=== PATIENT | male | born 1955 | race Caucasian/White ===

== ENCOUNTER 2022-05-28 07:37 | Outpatient (CLI) | payer MEDICARE, BC, SELFPAY | END 2022-05-28 07:38 | disposition home or self-care (01) | LOC: NFLDREF 21:44 | PROVIDERS: PCP Internal Medicine; Referring Provider Internal Medicine; Visit Provider Internal Medicine | DX: Z00.00 Encounter for general adult medical examination without abnormal findings (principal); G25.81 Restless legs syndrome; Z12.5 Encounter for screening for malignant neoplasm of prostate; Z13.6 Encounter for screening for cardiovascular disorders | CPT/HCPCS: 80053; 80061; 84153 ==

== ENCOUNTER 2023-06-04 07:42 | Outpatient (CLI) | payer MEDICARE, BC, SELFPAY ==
--- OUTSIDE RECORDS SUMMARY | 2023-06-28 07:15 | XMS_ITS | Clinical Summary ---
Author Name Unknown Organization [facility] Address [address] [place] [address] Care Team Providers Care Stewardess Supervisor Name Role Phone Elsewhere, Pcp Primary Care Provider Unavailabl e Source Comments Patient records contain information from all sites at [facility]. For routine questions regarding patient records, call [phone] during business hours, M-F 8:00 AM - 5:00 PM Central Time. Record requests for emergency care only can be directed to [phone] at any time.[facility] Allergies No known active allergies Medications Medication Sig Dispensed Refills Start Date End Date Status amoxicillin (AMOXIL) 500 mg capsule Take 4 capsules by mouth. 1 hour prior to dental appointments and procedures 05/28/2021 Active oxyCODONE (ROXICODONE) 5 mg immediate release tabletIndications: Acute Pain Take 1 tablet (5 mg total) by mouth every 4 (four) hours as needed for pain Indication: Acute Pain. 12 tablet 01/08/2022 Active HYDROcodone-acetam inophen (NORCO) 5-325 mg per tablet Take 1 tablet by mouth every 8 (eight) hours as needed. 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 Genetic Susceptibility To Disease from Last 3 Months Immunizations Name Administration Dates Next Due Influenza Split 11/08/2013 SARS-COV-2 (COVID-19) - MODERNA(Discontinued) influenza vaccine quad (FLUZ ONE/FLUARIX) (6 months and older)(PF) 12/01/2014 Family History Medical History Relation Name Comments Pancreatic cancer Father Vazquez Hernandez Arthritis Mother Ramu Hernandez Pancreatic cancer Mother Ramu Hernandez Relation Name Status Comments Father Vazquez Hernandez Mother Ramu Hernandez Social History Tobacco Use Types Packs/Day Years Used Date Smoking Tobacco: Never Smokeless Tobacco: Never Tobacco Cessation:Counseling Given: Not Answered Alcohol Use Standard Drinks/Week Comments Yes 3 (1 standard drink = 0.6 oz pur e alcohol) Humiliation, Afraid, Rape, and Kick questionnair e Answer Date Recorded Within the last year, have y ou been afraid of your partner or ex-partner? No 01/25/2021 Within the last year, have y ou been humiliated or emotionally abused in other ways by your partner or ex-partner? No Within the last year, have y ou been kicked, hit, slapped, or otherwise physically hurt by your partner or ex-partner? No 01/25/2021 Within the last year, have y ou been raped or forced to have any kind of sexual activity by your partner or ex-partner? No 01/25/2021 Social Connection and Isolat ion Panel [NHANES] Answer Date Recorded In a typical week, how many times do you talk on the phone with family, friends, or neighbors? More than three times a week 01/25/2021 How often do you get togethe r with friends or relatives? Three times a week 01/25/2021 How often do you attend chur or episcopal services? More than 4 times per year 01/25/2021 Do you belong to any clubs o r organizations such as sikhism groups, unions, fraternal or athletic groups, or school groups? Yes 01/25/2021 How often do you attend meet ings of the clubs or organizations you belong to? More than 4 times per year 01/25/2021 Are you , , di vorced, , never , or living with a partner? 01/25/2021 AUDIT-C Answer Date Recorded Q1: How often do you have a drink containing alc ohol? 2-3 times a week 01/25/2021 Q2: How many drinks containi ng alcohol do you have on a typical day when you are drinking? 1 or 2 01/25/2021 Q3: How often do you have si x or more drinks on one occasion? Never 01/25/2021 Overall Financial Resource Strain (CARDIA) Answe r Date Recorded How hard is it for you to pa y for the very basics like food, housing, medical care, and heating? Not very hard 01/25/2021 [facility] - Occupational Stress Questionnaire Answer Date Recorded Do you feel stress - tense, restless, nervous, or anxious, or unable to sleep at night because your mind is troubled all the time - these days? Not at all 01/25/2021 Exercise Vital Sign Answer Date Recorde d On average, how many days pe r week do you engage in moderate to strenuous exercise (like a brisk walk)? 3 days 01/25/2021 On average, how many minutes do you engage in exercise at this level? 50 min 01/25/2021 Hunger Vital Sign Answer Date Recorded Within the past 12 months, y ou worried that your food would run out before you got the money to buy more. Never true 01/26/20 21 Within the past 12 months, t he food you bought just didn't last and you didn't have money to get more. Never true 01/25/2021 PRAPARE - Transportation Answer Date Re corded In the past 12 months, has l ack of transportation kept you from medical appointments or from getting medications? No 01/08 In the past 12 months, has l ack of transportation kept you from meetings, work, or from getting things needed for daily living? No 01/25/2021 Housing Stability Vital Sign Answer Nik e Recorded In the last 12 months, was t here a time when you were not able to pay the mortgage or rent on time? No 01/25/2021 In the last 12 months, how many places have you lived? 1 01/25/2021 In the last 12 months, was t here a time when you did not have a steady place to sleep or slept in a correction (including now)? No 01/25/2021 Nutrition Answer Date Recorded Nutrition: EVOO Fat Source No 01/25 On average, how many serving s of fruits and vegetables do you eat per day (serving size is equal to 1 cup or approximately the size of a tennis ball)? 2-3 01/25/2021 Dental Answer Date Recorded Dental: Regular Dentist Yes 02/15/19 Employment Answer Date Recorded Employment status Employed and actively working without restrictions 01/25/2021 Education Answer Date Recorded What is the highest level of school you have completed or the highest degree you have received? Some college, no degree 01/25/2021 Sex and Gender Information Value Date Recorded Sex Assigned at Male 01/28/2021 1:48 AM CLERICAL OFFICE Gender Identity Male 01/28/2021 1:48 AM CLERICAL OFFICE Sexual Orientation Straight 01/28/2021 1: 48 AM CLERICAL OFFICE Last Filed Vital Signs Vital Sign Reading Time Taken Comments Blood Pressure 120/79 01/19/2022 9:46 AM CLERICAL OFFICE Pulse 63 01/19/2022 9:46 AM CLERICAL OFFICE Temperature 36.5 ??C (97.7 ??F) 01/19/2022 9:46 AM CS T Respiratory Rate 21 01/08/2022 1:00 PM CLERICAL OFFICE Oxygen Saturation 95% 01/08/2022 1:00 PM CLERICAL OFFICE Inhaled Oxygen Concentration - - Weight 116 kg (255 lb 8.2 oz) 01/08/2022 9:44 AM CLERICAL OFFICE Height 168.9 cm (5' 6.5) 06/24/2021 12:56 PM CD T Body Mass Index 40.63 06/24/2021 12:56 PM CDT Plan of Treatment Health Maintenance Due Date Last Done Comments CT Colonography 1954 Cologuard 1954 Colonoscopy 1954 Colorectal Cancer Screening 1954 FIT 1954 Fasting Glucose for Diabetes Screening 12/01/2017 12/01/2014, 02/27/2014 COVID-19 Vaccine (2022- 4 season) 2022 12/12/2020, 04/12/2020, 03/15/2020 Depression Screening (Annual PHQ-2) 02/08/2023 Fall Risk Screen (Annual) 02/08/2023 DTaP,Tdap,and Td Vaccines (3 - Td or Tdap) 06/27/2029 06/28/2019, 06/27/2008 Hepatitis C Screening Completed 06/05/2015 , 06/05/2015, 12/01/2014, Additional history exists Zoster Vaccines Completed 01/17/2019, 10/09, 12/24/2014 Pneumococcal vaccine (65+ years) Completed 05/29/19, 03/14/2020 Influenza Vaccine Completed 10/16/2022, , 11/19/2020, Additional history exists Medical Devices Implanted Type Area Vac Press Operator Device Identifier Shelf Expiration Date Model / Serial / Lot Trilogy-Screw 6.5x20 - Yip [id number] Implanted:Qty: 1 on 02/26/2014 Hardware e.g. pins/screws/ rods [employer] Description:Device Manufactu rer - Vanessa. Device Status Text - [id number]. Trilogy-Screw 6.5x30 - Yip [id number] Implanted:Qty: 1 on 02/26/2014 Hardware e.g. pins/screws/ rods [employer] Description:Device Manufactu rer - Vanessa. Device Status Text - [id number]. [place] Screw 2 Canc 6.5 X 30 - Yip [id number] Implanted:Qty: 2 on 11/30/2014 Hardware e.g. pins/screws/ rods [employer] Description:Device Manufactu rer - J [employer] J [employer]. Device Status Text - HARDWARE-92354. [employer] Nrstm Absorb Lg - [id number] Implanted:Qty: 1 on 01/08/2022 by Lucian Ballard M.D. at [facility] Hardware e.g. pins/screws/ rods Left: Back Medtronic [id number] 09/20/2022 [id number] / / [id number] [employer] Nrstm Absorb Lg - [id number] Implanted:Qty: 1 on 01/08/2022 by Lucian Ballard M.D. at [facility] Hardware e.g. pins/screws/ rods Left: Back Medtronic 09/20/2022 [id number] / / [id number] [place] Liner Altrx Neut 32x54 - Yip [id number] Implanted:Qty: 1 on 02/26/2014 Hip Implant Other/Legacy - See Implant Description [employer] Description:Device Manufactu rer - J [employer]. Body Location - Other. Left. Device Status Text - HIP [id number]. Delta-Head Ceramic 32mm +1 - Yip [id number] Implanted:Qty: 1 on 02/26/2014 Hip Implant Other/Legacy - See Implant Description [employer] Description:Device Manufactu rer - [employer]. Body Location - Other. Left. Device Status Text - HIP [id number]. Depuy Stem Femoral Corail Kla12 - Yip [id number] Implanted:Qty: 1 on 02/26/2014 Hip Implant Other/Legacy - See Implant Description [employer] Description:Device Manufactu rer - J [employer]. Body Location - Other. Left. Device Status Text - HIP [id number]. [place] Shell Multi 2 54mm - Yip [id number] Implanted:Qty: 1 on 02/26/2014 Hip Implant Other/Legacy - See Implant Description [employer] Description:Device Manufactu rer - J [employer]. Body Location - Other. Left. Device Status Text - HIP [id number]. [place] Shell Multi 2 54mm - Yip [id number] Implanted:Qty: 1 on 11/30/2014 Hip Implant Other/Legacy - See Implant Description [employer] Description:Device Manufactu rer - J [employer]. Body Location - Other. Right. Device Status Text - HIP IMP-[id number]. [place] Liner Altrx Neut 32x54 - Yip [id number] Implanted:Qty: 1 on 11/30/2014 Hip Implant Other/Legacy - See Implant Description [employer] Description:Device Manufactu rer - J [employer]. Body Location - Other. Right. Device Status Text - HIP IMP-713921. Depuy Stem Femoral Corail Kla12 - Yip [id number] Implanted:Qty: 1 on 11/30/2014 Hip Implant Other/Legacy - See Implant Description [employer] Description:Device Manufactu rer - J [employer] J [employer]. Body Location - Other. Right. Device Status Text - HIP IMP-[id number]. Delta-Head Ceramic 32mm +1 - Yip [id number] Implanted:Qty: 1 on 11/30/2014 Hip Implant Other/Legacy - See Implant Description [employer] Description:Device Manufactu rer - J & J Ortho. Body Location - Other. Right. Device Status Text - HIP IMP-493935. Restore Sensor Model 65543 - Yip [id number] Implanted:05/10 (Quantity not on file) Spinal Cord Stimulator Other/Legacy - See Implant Description Other/Legacy - See Implant Description Description:1.5T conditional , no physicist needed. See distribution lead's guidelines: Http://manuals.v2 Ratings.ONtheAIR/manuals/main/en_[place]/home. Isidra Morrison, 03/24/21 Device Vac Press Operator - Medtronic. Body Location - Other. Device Status Text - SPINECORD-074785. Kt Nrv [facility] Int ls - [id number] - [id number] Implanted:Qty: 1 on 01/08/2022 by Lucian Ballard M.D. at [facility] Spinal Cord Stimulator Left: Back Medtronic 06/02/2022 [id number] / [id number] / Medtronic [place] Bi-Wing Injex [id number] Implanted:Qty: 1 on 06/06/2013 Stimulator Other Other/Legacy - See Implant Description Medtronic Description:Device Manufactu rer - Medtronic [employer] Inc. Body Location - Other. Not Applicable. Device Status Text - SPINECORD-437271. Lead [id number] Implanted:Qty: 1 on 06/06/2013 Stimulator Other Other/Legacy - See Implant Description Medtronic [id number] / / Description:http://[email or web address]/manuals/main/en_[place]/home Device Vac Press Operator - Medtronic [employer] Inc. Body Location - Other. Not Applicable. Device Status Text - ELECTRODE-886501. Lead [id number] Implanted:Qty: 1 on 06/06/2013 Stimulator Other Other/Legacy - See Implant Description Medtronic [id number] / / Description:http://[email or web address]/manuals/main/en_[place]/home Device Vac Press Operator - Medtronic [employer] Inc. Body Location - Other. Not Applicable. Device Status Text - ELECTRODE-895231. Explanted Type Area Vac Press Operator Device Identifier Shelf Expiration Date Model / Serial / Lot Lead [id number] Implanted:Qty: 1 on 04/25/2013 Explanted:05/02 (Quantity not on file) Stimulator Other Other/Legacy - See Implant Description Medtronic [id number] / / Description:http://manuals.m [email or web address] [email or web address].com/manuals/main/en_[place]/home Device Vac Press Operator - Medtronic [place] Inc. Body Location - ?. Not Applicable. Device Status Text - ELECTRODE-247888. Procedures Procedure Name Priority Date/Time Associated Diagnosis Comments BONE DONOR 6 MONTH SCREEN TEST SET Routine 06/05/2015 10:00 AM CDT ELPN WITH CREATININE JOSR, P Routine 12/01/2014 4:39 AM CDT from Last 3 Months or Most Recently Relevant to Health Maintenance Results * Bone Donor 6 Month Screen Test Set (06/05/2015 10:00 AM CDT) Pathologist [facility] Donor HBcore Antibody Negative [facility] Comment:Mailed In Specimen HCV Ab Screen Donor Negative [facility] Comment:Mailed In Specimen HX Hiv-1/-2, Plus O Ab Screen Donor Negative [facility] Comment:Mailed In Specimen 06/05/2015 10:0 0 AM CDT 06/05/2015 10:00 AM CDT Narrative [facility] - 06/08/2015 4:24 AM CDT Mailed In Specimen Bandar Kelley M.D. LAB BLOOD NON ADD-ON [facility] [address] * Electrolyte Panel with Creatinine Josr (12/01/2014 4:39 AM CDT) Pathologist [facility] Chloride, S 100 98 - 107 MMOL/L [facility] BUN (Blood Urea Nitrogen), S 17 8 - 24 MG/DL [facility] Sodium, P 140 135 - 145 MMOL/L [facility] Potassium, P 4.1 3.6 - 5.2 MMOL/L [facility] HX Bicarbonate, P/S 28 22 - 29 MMOL/L [facility] Creatinine, Josr 0.8 0.7 - 1.2 MG/DL [facility] Glucose, S 129 70 - 140 MG/DL [facility] Anion Gap 12 7 - 15 [facility] 12/01/2014 4:39 AM CDT 12/01/2014 4:39 AM CDT Isha Sarmiento M.D. LAB BLOOD ADD-ON [facility] [address] [place] [address], [facility] from Last 3 Months or Most Recently Relevant to Health Maintenance Advance Directives For more information, please contact: [phone] Documents on File Type Date Recorded Patient Management Trainee Program Stores Expl anation Advance Directives 05/22/2014 12:00 AM Leg acy document. See document viewer. Care Teams Stewardess Supervisor Relationship Specialty Start Date End Date Elsewhere, Pcp PCP - General Internal Medicine 06/23/21
--- OUTSIDE RECORDS SUMMARY | 2023-06-28 07:16 | XMS_ITS | Encounter Summary ---
Author Name Unknown Organization [facility] Address [address] [place] [address] Care Team Providers Care Store Gift Wrap Associate Name Role Phone Elsewhere, Pcp Primary Care Provider Unavailabl e Encounter Details Date Type Department Care Team (Late st Contact Info) Description 04/08/2023 Orders Only Division of Gastroenterology in [place], [place] [address] [place] [id number] Bereket Groves M.D. [address] [place] [address] Genetic Susceptibility To Disease Social History Tobacco Use Types Packs/Day Years Used Date Smoking Tobacco: Never Smokeless Tobacco: Never Alcohol Use Standard Drinks/Week Comments Yes 3 [...] 01/25/2021 How often do you attend chur ch or nondenominational services? More than 4 times per year 01/25/2021 Do you belong to any clubs o r organizations such as scientology groups, unions, fraternal or athletic groups, or [...] care, and heating? Not very hard 01/25/2021 [facility] - Occupational Stress Questionnaire Answer Date Recorded [...] place to sleep or slept in a skilled nursing (including now)? No 01/25/2021 Nutrition Answer Date [...] Sex Assigned at Male 01/28/2021 1:48 AM DIESEL SCOOP OPERATOR Gender Identity Male 01/28/2021 1:48 AM DIESEL SCOOP OPERATOR Sexual Orientation Straight 01/28/2021 1: 48 AM DIESEL SCOOP OPERATOR documented as of this encounter Plan of Treatment Not on file documented as of this encounter Procedures Procedure Name Priority Date/Time Associated Diagnosis Comments EXT TAPESTRY Routine 08/21/2020 12:00 AM CDT Genetic Susceptibility To Disease documented in this encounter Results * EXT Tapestry (08/21/2020 12:00 AM CDT) Gene Studied BRCA1,BRCA2,MLH1,MSH 2,MSH 6,PMS2,EPCAM,APOB,LDLR,LD LRAP1,PCSK9 12:00 AM CDT [facility] Genetic Disease Assessed Evaluation of 11 genes associated with Hereditary Breast and Ovarian Cancer, Duke Syndrome and Familial Hypercholesterolemia. 1 12:00 AM VTEX Genetic Analysis Overall Interpretation Negative results through Tapestry do not replace diagnostic testing for patients with a personal or family history of cancer/hypercholesterolem ia due to limitations with methodology. Consider a referral to a genetic counselor for diagnostic testing if warranted. 1 12:00 AM VTEX Genetic Analysis Report See Tapestry PDF Report No actionable gene changes were detected in the genes that cause Familial Hypercholesterolemia. The genes tested for this condition were APOB, LDLR, LDLRAP1, and PCSK9.No actionable gene changes were detected in the genes that cause Hereditary Breast and Ovarian Cancer. The genes tested for this condition were BRCA1 and BRCA2.No actionable gene changes were detected in the genes that cause Duke Syndrome. The genes tested for this condition were MLH1, MSH2, MSH6, PMS2 and EPCAM. Clinical confirmation of actionable variants is advised prior to changing your medical care. Genetic counseling is recommended. This test is not intended to diagnose a disease, determine medical treatment, or tell the user anything about their current state of health. This test is intended to provide users with their genetic information to inform lifestyle decisions and conversations with their doctor. Any diagnostic or treatment decisions should be based on testing and/or other information that your healthcare provider determines to be appropriate for you. DNA extracted from your saliva sample was captured and enriched using a custom set of reagents (Acucela+ chemistry). Targeted regions were then sequenced using an Illumina DNA sequencing system. Alignment to a modified version of GRCh38 and variant calling were completed using a customized version of [employer]'s Auterra software, requiring 20x coverage for validated variant calls. The test panel is bioinformatically selected from the [employer]. Copy Number Variants (CNVs) were called using a proprietary bioinformatics pipeline that compared the coverage profile of your sample with the coverage profiles of a reference set of other samples. [facility] Mobile[employer] then analyzed generated variant data for the exons and 10 bp of flanking intronic sequence (and select tagged intronic variants) of the 11 genes included in [employer] from the [employer] Database. The Analytical Range includes single nucleotide variants (SNVs), indels up to 20 bp in length, and CNVs. Note: CNV sensitivity is limited to events that span two or more exons. For genes involved in Familial Hypercholesterolemia, only variants associated with the condition are reported, while variants associated with other phenotypes such as hypobetalipoproteinemia are not included. Some known complex variants like inversion exon 1-7 in the MSH2 gene (Lupillo inversion) or exons 11-15 of the PMS2 gene are not analyzed or reported. Finally, it is important to note that this assay cannot detect all variants known to increase disease risk. ??Specifically, there are regions that are not covered, such as deep intronic, promoter, homopolymer regions greater than 7 bp, and untranslated regions. 1 12:00 AM CDT [facility] Human Reference Sequence Assembly GRCh38 1 12:00 AM CDT [facility] Saliva (Mouth) 08/21/2020 Bereket Groves M.D. LAB GENETI C TESTING HELIX [address] [id number] [facility], [address] [place] [address], [facility] [address] [address] [facility], [address] [address] documented in this encounter Visit Diagnoses Diagnosis Genetic Susceptibility To Disease documented in this encounter Care Teams Store Gift Wrap Associate Relationship Specialty Start Date End Date Elsewhere, Pcp PCP - General Internal Medicine 06/23/21 documented as of this encounter
--- OUTSIDE RECORDS SUMMARY | 2023-06-28 07:16 | XMS_ITS | Clinical Summary ---
Author Name Unknown Organization [employer] [facility] Address [place], [place] [address] Care Team Providers Care Correction Worker Name Role Phone Clinic, No Pcp Or Primary Care Provider Unavaila ble Allergies No known active allergies Medications Medication Sig Dispensed Refills Start Date End Date Status pramipexole (MIRAPEX) 0.5 mg tablet Take 0.5 mg by mouth. 09/06/2020 Active HYDROcodone-acetaminop hen (NORCO) 5-325 mg per tablet TAKE 1 TO 2 TABLETS BY MOUTH EVERY 4 HOURS NEEDED 10/17/2020 Active lidocaine 1.8 % ptmd Acti ve ibuprofen (ADVIL; MOTRIN) 200 mg cap Four Times Daily as needed Active Active Problems No known active problems Social History Tobacco Use Types Packs/Day Years Used Date Smoking Tobacco: Never Smokeless Tobacco: Never Tobacco Cessation:Counseling Given: Yes Social Connections Answer Date Recorded Frequency of Communication with Friends and Fami ly Not on file 02/08/2021 Financial Resource Strain Answer Date R ecorded Difficulty of Paying Living Expenses Not on file 02/08/2021 Difficulty of Paying Living Expenses Not on file 02/08/2021 Sex and Gender Information Value Date Recorded Sex Assigned at Not on file Gender Identity Not on file Sexual Orientation Not on file Obstetrics History Last Filed Vital Signs Vital Sign Reading Time Taken Comments Blood Pressure 133/74 10/30/2020 2:34 PM CDT Pulse 64 10/30/2020 2:34 PM CDT Temperature 36.7 ??C (98.1 ??F) 10/30/2020 2:34 PM CD T Respiratory Rate - - Oxygen Saturation 95% 10/30/2020 2:34 PM CDT Inhaled Oxygen Concentration - - Weight - - Height - - Body Mass Index - - Plan of Treatment Health Maintenance Due Date Last Done Comments Tdap 1965 Depression screening for age 12+ 1966 BMI (ht and wt on same day) for age 18+ 1972 Hepatitis C screening for age 18-79 1972 Tetanus booster 1974 Colonoscopy through age 75 09/04/1999 Lipids for age 45-75 09/04/1999 Zoster (shingles) series for age 50+ (1 of 2) 09/04/19 05 Medicare Wellness for age 65+ 09/04/2019 Pneumococcal series for age 65+ (1 of 1 - PCV) 020 COVID-19 vaccine series (2 - 2022- season) 3 04/12/2020 Influenza for age 65+ 10/10/2023 Care Teams Correction Worker Relationship Specialty Start Date End Date Clinic, No Pcp Or . PCP - General 08/07/20
--- OUTSIDE RECORDS SUMMARY | 2023-06-28 07:16 | XMS_ITS | Clinical Summary ---
Author Name Unknown Organization [facility] Address [address] [place] [address] Care Team Providers Care Pattern Grader Name Role Phone Anuj Craig MD Primary Care Provider [phone] Source Comments You are receiving this document as you are listed as the primary care provider,follow-up provider, or the patient has been referred to you for consultation.This is in compliance with the Medicare and[facility] E[facility] Incentive [facility],which states Providers who transition their patient to another setting of careor provider of care or refers their patient to another provider of care shouldprovide summary care record for each transition of care or referral. [facility] Allergies No known active allergies Medications Medication Sig Dispensed Refills Start Date End Date Status amoxicillin (AMOXIL) 500 MG capsule TAKE 4 CAPSULES BY MOUTH 1 TIME 1 HOUR BEFORE APPOINTMENT 12/27/2020 Active HYDROcodone-acetami nophen (NORCO) 5-325 MG tablet TAKE 1 TO 2 TABLETS BY MOUTH EVERY 4 HOURS NEEDED 12/25/2020 Active pramipexole (MIRAPEX) 1 MG tablet Take 1 Tablet (1 mg) by mouth two times a day. 12/08/2022 Active Generic Medication (COMPOUNDED CREAM)Indications:A ctinic skin damage Fluorouracil 5%/Calcipotriene 0.005% 1:1 cream. Apply a thin layer to face twice daily for 7 days and then to scalp twice daily for 7-10 days. Wash hands well after applications. 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 03/22/2018 Overview: Added automatically from request for surgery [id number] Social History Tobacco Use Types Packs/Day Years Used Date Smoking Tobacco: Never Smokeless Tobacco: Never Sex and Gender Information Value Date Recorded Sex Assigned at Not on file Gender Identity Not on file Sexual Orientation Not on file Last Filed Vital Signs Vital Sign Reading Time Taken Comments Blood Pressure 158/83 03/22/2018 2:34 PM SHELL MAKER LOCKSTITCH Pulse 84 03/22/2018 2:34 PM SHELL MAKER LOCKSTITCH Temperature - - Respiratory Rate - - Oxygen Saturation - - Inhaled Oxygen Concentration - - Weight 114.3 kg (252 lb) 03/22/2018 2:34 PM SHELL MAKER LOCKSTITCH Height 172.7 cm (5' 8) 03/22/2018 2:34 PM SHELL MAKER LOCKSTITCH Body Mass Index 38.32 03/22/2018 2:34 PM SHELL MAKER LOCKSTITCH Plan of Treatment Upcoming Encounters Date Type Department Care Team (Late st Contact Info) Description 01/17/2024 3:45 PM SHELL MAKER LOCKSTITCH Appointment [facility] [address] [place], [place] [id number] Nikolai Johnson MD [facility] [place], [place] [id number] Health Maintenance Due Date Last Done Comments Colon Cancer Screening Plan Due 1955 Hep C Screening (Preventive Services) 1955 Medicare Annual Wellness Visit 1955 PSA Screening Discussion 1954 Cholesterol 1989 COVID-19 Vaccine ( season) 2022 12/12/2020, 04/12/2020, 03/15/2020 DTaP/Tdap/Td (2 - Tdap) 06/27/2029 06/28/2019 Zoster/Shingles Completed 01/17/2019, 10/09, 12/24/2014 Pneumococcal 65+ Yrs Completed 05/28/2021, 03/14/19 21 Influenza Completed 10/16/2022, 11/09, 11/19/2020, Additional history exists HepA Aged Out No longer eligi ble based on patient's age to complete this topic HepB Aged Out No longer eligi ble based on patient's age to complete this topic Hib Aged Out No longer eligi ble based on patient's age to complete this topic IPV (Polio) Aged Out No longer eligi ble based on patient's age to complete this topic MCV4 Aged Out No longer eligi ble based on patient's age to complete this topic Care Teams Pattern Grader Relationship Specialty Start Date End Date Anuj Craig MD [address] [place] [address] PCP - General 05/09/19
--- OUTSIDE RECORDS SUMMARY | 2023-06-28 07:16 | XMS_ITS | Referral Summary ---
Author Name Unknown Organization [facility] Address [address] [place] [address] Care Team Providers Care Landscape Supervisor Name Role Phone Elsewhere, Pcp Primary Care Provider Unavailabl e Source Comments Patient records contain information from all sites at [facility]. For routine questions regarding patient records, call [phone] during business hours, M-F 8:00 AM - 5:00 PM Central Time. Record requests for emergency care only can be directed to [phone] at any time.[facility] Encounters Date Type Department Care Team Description 04/08/2023 Orders Only Division of Gastroenterology in [place], [place] [address] [place] [address] Bereket Groves M.D. Genetic Susceptibility To Disease from Last 3 Months Allergies No known active allergies Medications Medication [...] Spinal 09/23/2021 Pain Low Back Unspecified 09/23/2021 Immunizations Name Administration Dates Next Due Influenza Split 11/08/2013 SARS-COV-2 (COVID-19) - MODERNA(Discontinued) influenza vaccine quad (FLUZ ONE/FLUARIX) (6 months and older)(PF) 12/01/2014 Social History Tobacco Use Types Packs/Day Years [...] How often do you attend chur or worship services? More than 4 times per year 01/25/2021 Do you belong to any clubs o r organizations such as evangelical groups, unions, fraternal or athletic groups, or [...] care, and heating? Not very hard 01/25/2021 [facility] - Occupational [...] place to sleep or slept in a intermediate (including now)? No 01/25/2021 Nutrition Answer Date [...] Sex Assigned at Male 01/28/2021 1:48 AM IDENTITY ACCESS MANAGEMENT ARCHITECT Gender Identity Male 01/28/2021 1:48 AM IDENTITY ACCESS MANAGEMENT ARCHITECT Sexual Orientation Straight 01/28/2021 1: 48 AM IDENTITY ACCESS MANAGEMENT ARCHITECT Last Filed Vital Signs Vital Sign Reading Time Taken Comments Blood Pressure 120/79 01/19/2022 9:46 AM IDENTITY ACCESS MANAGEMENT ARCHITECT Pulse 63 01/19/2022 9:46 AM IDENTITY ACCESS MANAGEMENT ARCHITECT Temperature 36.5 ??C (97.7 ??F) 01/19/2022 9:46 AM CS T Respiratory Rate 21 01/08/2022 1:00 PM IDENTITY ACCESS MANAGEMENT ARCHITECT Oxygen Saturation 95% 01/08/2022 1:00 PM IDENTITY ACCESS MANAGEMENT ARCHITECT Inhaled Oxygen Concentration - - Weight 116 kg (255 lb 8.2 oz) 01/08/2022 9:44 AM IDENTITY ACCESS MANAGEMENT ARCHITECT Height 168.9 cm (5' 6.5) 06/24/2021 12:56 PM CD T Body Mass Index 40.63 06/24/2021 12:56 PM CDT Plan of Treatment Not on file Medical Devices Implanted Type Area [employer] Applier Device Identifier Shelf Expiration Date Model / Serial / Lot Trilogy-Screw 6.5x20 - Yip [id number] Implanted:Qty: 1 on 02/26/2014 Hardware e.g. pins/screws/ rods [employer] Description:Device Manufactu rer - Vanessa. Device Status Text - [id number]. Trilogy-Screw 6.5x30 - Yip [id number] Implanted:Qty: 1 on 02/26/2014 Hardware e.g. pins/screws/ rods [employer] Description:Device Manufactu rer - Vanessa. Device Status Text - HARDWARE-34700. [place] Screw 2 Canc 6.5 X 30 - Yip [id number] Implanted:Qty: 2 on 11/30/2014 Hardware e.g. pins/screws/ rods [employer] Description:Device Manufactu rer - [employer]. Device Status Text - HARDWARE-74987. [facility] Nrstm Absorb Lg - [id number] Implanted:Qty: 1 on 01/08/2022 by Lucian Ballard M.D. at [facility] Hardware e.g. pins/screws/ rods Left: Back Medtronic [id number] 09/20/2022 [id number] / / [id number] [facility] Nrs Absorb Lg - [id number] Implanted:Qty: 1 on 01/08/2022 by Lucian Ballard M.D. at [facility] Hardware e.g. pins/screws/ rods Left: Back Medtronic 09/20/2022 [id number] / / [id number] [place] Liner Altrx Neut 32x54 - Yip [id number] Implanted:Qty: 1 on 02/26/2014 Hip Implant Other/Legacy - See Implant Description [employer] Description:Device Manufactu rer - [employer]. Body Location - Other. Left. Device Status Text - HIP IMP-[id number]. Delta-Head Ceramic 32mm +1 - Yip [id number] Implanted:Qty: 1 on 02/26/2014 Hip Implant Other/Legacy - See Implant Description [employer] Description:Device Manufactu rer - [employer]. Body Location - Other. Left. Device Status Text - HIP [id number]. Depuy Stem Femoral Corail Kla12 - Yip [id number] Implanted:Qty: 1 on 02/26/2014 Hip Implant Other/Legacy - See Implant Description [employer] Description:Device Manufactu rer - [employer]. Body Location - Other. Left. Device Status Text - HIP [id number]. [place] Shell Multi 2 54mm - Yip [id number] Implanted:Qty: 1 on 02/26/2014 Hip Implant Other/Legacy - See Implant Description [employer] Description:Device Manufactu rer - [employer]. Body Location - Other. Left. Device Status Text - HIP IMP-546292. [place] Shell Multi 2 54mm - Yip [id number] Implanted:Qty: 1 on 11/30/2014 Hip Implant Other/Legacy - See Implant Description [employer] Description:Device Manufactu rer - [employer]. Body Location - Other. Right. Device Status Text - HIP IMP-120107. [place] Liner Altrx Neut 32x54 - Yip [id number] Implanted:Qty: 1 on 11/30/2014 Hip Implant Other/Legacy - See Implant Description [employer] Description:Device Manufactu rer - [employer]. Body Location - Other. Right. Device Status Text - HIP IMP-961793. Depuy Stem Femoral Corail Kla12 - Yip [id number] Implanted:Qty: 1 on 11/30/2014 Hip Implant Other/Legacy - See Implant Description [employer] Description:Device Manufactu rer - J [employer]. Body Location - Other. Right. Device Status Text - HIP IMP-457265. Delta-Head Ceramic 32mm +1 - Yip [id number] Implanted:Qty: 1 on 11/30/2014 Hip Implant Other/Legacy - See Implant Description [employer] Description:Device Manufactu rer - J [employer] J Ortho. Body Location - Other. Right. Device Status Text - HIP IMP-631857. Restore Sensor Model [id number] - Yip [id number] Implanted:05/10 (Quantity not on file) Spinal Cord Stimulator Other/Legacy - See Implant Description Other/Legacy - See Implant Description Description:1.5T conditional , no physicist needed. See mixer wet pour's guidelines: Http://manuals.medtronic.com/manuals/main/en_[place]/home. Isidra Morrison, 03/24/21 Device [employer] Applier - Medtronic. Body Location - Other. Device Status Text - SPIN[place]ORD-073065. [facility] - [id number] - [id number] Implanted:Qty: 1 on 01/08/2022 by Lucian Ballard M.D. at [facility] Spinal Cord Stimulator Left: Back Medtronic 06/02/2022 [id number] / [id number] / Medtronic [place] Bi-Wing Injex [id number] Implanted:Qty: 1 on 06/06/2013 Stimulator Other Other/Legacy - See Implant Description Medtronic Description:Device Manufactu rer - [employer]. Body Location - Other. Not Applicable. Device Status Text - SPIN[place]ORD-518456. Lead [id number] Implanted:Qty: 1 on 06/06/2013 Stimulator Other Other/Legacy - See Implant Description Medtronic [id number] / / Description:http://manuals.Volusion/manuals/main/en_[place]/home Device [employer] Applier - Medtronic [employer] Inc. Body Location - Other. Not Applicable. Device Status Text - ELECTRODE-812140. Lead [id number] Implanted:Qty: 1 on 06/06/2013 Stimulator Other Other/Legacy - See Implant Description Medtronic [id number] / / Description:http://manuals.Volusion/manuals/main/en_[place]/home Device [employer] Applier - Med[employer]onic [employer] Inc. Body Location - Other. Not Applicable. Device Status Text - ELECTRODE-965371. Explanted Type Area [employer] Applier Device Identifier Shelf Expiration Date Model / Serial / Lot Lead [id number] Implanted:Qty: 1 on 04/25/2013 Explanted:05/02 (Quantity not on file) Stimulator Other Other/Legacy - See Implant Description Medtronic [id number] / / Description:http://manuals.Volusion/manuals/main/en_[place]/home Device [employer] Applier - Medtronic [employer] Inc. Body Location - ?. Not Applicable. Device Status Text - ELECTRODE-144598. Procedures Procedure Name Priority Date/Time Associated Diagnosis Comments BONE DONOR 6 MONTH SCREEN TEST SET Routine 06/05/2015 10:00 AM CDT ELPN WITH CREATININE JOSR, P Routine 12/01/2014 4:39 AM CDT from Last 3 Months or Most Recently Relevant to Health Maintenance Results * Bone Donor 6 Month Screen Test Set (06/05/2015 10:00 AM CDT) Donor HBcore Antibody Negative [facility] Comment:Mailed In Specimen HCV Ab Screen Donor Negative [facility] Comment:Mailed In Specimen HX Hiv-1/-2, Plus O Ab Screen Donor Negative [facility] Comment:Mailed In Specimen 06/05/2015 10:0 0 AM CDT 06/05/2015 10:00 AM CDT Narrative [facility] - 06/08/2015 4:24 AM CDT Mailed In Specimen Bandar Kelley M.D. LAB BLOOD NON ADD-ON [facility] [address] [place] [id number] * Electrolyte Panel with Creatinine Josr (12/01/2014 4:39 AM CDT) Pathologist [facility] Chloride, S 100 98 - 107 MMOL/L [facility] BUN (Blood Urea Nitrogen), S 17 8 - 24 MG/DL [facility] Sodium, P 140 135 - 145 MMOL/L [facility] Potassium, P 4.1 3.6 - 5.2 MMOL/L [facility] HX Bicarbonate, P/S 28 22 - 29 MMOL/L [facility] Creatinine, Josr 0.8 0.7 - 1.2 MG/DL [facility] Glucose, S 129 70 - 140 MG/DL [facility] Anion Gap 12 7 - 15 [facility] 12/01/2014 4:39 AM CDT 12/01/2014 4:39 AM CDT Isha Sarmiento M.D. LAB BLOOD ADD-ON Performing Organization Address City/[facility]/ZIP Co de Phone Number [facility] [address] from Last 3 Months or Most Recently Relevant to Health Maintenance Advance Directives For more information, please contact: [phone] Documents on File Type Date Recorded Patient Road Design Engineer Expl anation Advance Directives 05/22/2014 12:00 AM Leg acy document. See document viewer. Care Teams Landscape Supervisor Relationship Specialty Start Date End Date Elsewhere, Pcp PCP - General Internal Medicine 06/23/21
--- OUTSIDE RECORDS SUMMARY | 2023-06-28 07:16 | XMS_ITS ---
Author Name Unknown Organization [facility] Address [address] [place] [address] Care Team Providers Care Knife Operator Name Role Phone Unavailable Unavailable Unavailable Surgery Details Not on file Complications Check Surgery Details section. Procedure Estimated Blood Loss Check Surgery Details section. Procedure Findings Check Surgery Details section. Procedure Specimens Taken Check Surgery Details section.
== END 2023-06-04 07:43 | disposition home or self-care (01) ==
LOC: NFLDREF 06-28 07:14
PROVIDERS: PCP Internal Medicine; Referring Provider Internal Medicine; Visit Provider Internal Medicine
DX: E78.5 Hyperlipidemia, unspecified (principal); Z12.5 Encounter for screening for malignant neoplasm of prostate; Z13.228 Encounter for screening for other metabolic disorders
CPT/HCPCS: 80053; 80061; G0103

== ENCOUNTER 2024-06-16 08:30 | Outpatient (CLI) | payer MEDICARE, BC, SELFPAY | END 2024-06-16 08:31 | disposition home or self-care (01) | LOC: NFLDREF 06-17 05:57 | PROVIDERS: PCP Internal Medicine; Referring Provider Internal Medicine; Visit Provider Internal Medicine | DX: G25.81 Restless legs syndrome (principal); Z12.5 Encounter for screening for malignant neoplasm of prostate; Z13.9 Encounter for screening, unspecified | CPT/HCPCS: 80053; 80061; G0103 ==

== ENCOUNTER 2024-11-15 16:14 | Outpatient (CLI) | payer MEDICARE, BC, SELFPAY ==
--- NOTE | 2024-11-15 16:45 | CRLHL7_ITS ---
For Patients: As a result of the Century Cures Act, medical imaging exams and procedure reports are released immediately into your electronic medical record. You may view this report before your referring provider. If you have questions, please contact your health care provider. Indication: GENERALIZED ENLARGED LYMPH NODES Technique: CT Chest W/ 75CC ISOVUE 370 intravenous contrast Please note that all CT scans at this facility use dose modulation, iterative reconstruction, and/or weight-based dosing when appropriate to reduce radiation dose to as low as reasonably achievable. Comparison: None Findings: 5.3 millimeter right lower lobe pulmonary nodule, . Neurostimulator wires. No fracture. Degenerative disc disease. 4.4 millimeter nodule in the left upper lobe, . 4.3 millimeter left upper lobe nodule, . Patchy areas of linear subsegmental scarring bilaterally. No pleural effusion or pulmonary edema. No infiltrate. The visualized thyroid is within normal limits. Incidental splenule. No hiatal hernia. No mediastinal, hilar or axillary adenopathy. Impression: No intrathoracic adenopathy. Bilateral pulmonary nodules measuring up to 5.3 millimeters. Optional 1 year follow-up could be considered. Patchy areas of scarring bilaterally. No acute cardiopulmonary disease. Please note that all CT scans at this facility use dose modulation, iterative reconstruction, and/or weight-based dosing when appropriate to reduce radiation dose to as low as reasonably achievable. Dictated by Jamar Herrera MD @ 11/16/2024 10:23:40 AM (Electronically Signed)
[2024-11-15 16:53] LABS: Creatinine* 0.8 mg/dL (0.5-1.5); Estimated Glomerular Filt Rate 95 ml/min
== END 2024-11-15 16:15 | disposition home or self-care (01) ==
LOC: CT 16:15
PROVIDERS: PCP Internal Medicine; Visit Provider Internal Medicine
DX: R59.1 Generalized enlarged lymph nodes (principal); R91.8 Other nonspecific abnormal finding of lung field
CPT/HCPCS: 36415; 71260; 82565; Q9967